=== PATIENT | male | born 1980 | race Caucasian/White ===

== ENCOUNTER 2017-08-13 11:05 | Observation (INO) | payer OTHER ==
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
[2017-08-13 12:55] LABS: INR 0.93 (0.83-1.16); PROTIME(PATIENT) 12.4 SEC (12.0-15.0)
[2017-08-13] MEDS ORDERED: HYDROCODONE/APAP 5/325 TAB PO PRN (12:56)
[2017-08-13] MEDS ORDERED: ONDANSETRON 4 MG/2 ML VIAL IVP PRN (12:56)
[2017-08-13] MEDS ORDERED: ACETAMINOPHEN 325 MG TAB PO PRN (12:56)
[2017-08-13] MEDS ORDERED: NALOXONE HCL 0.4 MG/ML INJ IVP PRN (12:56)
[2017-08-13] MEDS ORDERED: NS 1,000 ML IV SCH (13:00)
[2017-08-13 13:24] LABS: PLATELET COUNT 216 10^3/uL (150-400)
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
[2017-08-13] MEDS: levETIRAcetam 500 MG TAB PO SCH ×2 (14:20→21:18)
[2017-08-13] MEDS: HYDROmorphone HCL/NS/PF 0.4 MG/2 ML SYR IVP PRN ×3 (14:51→19:23)
[2017-08-13] MEDS ORDERED: ZOLPIDEM TARTRATE 5 MG TAB PO ONE (17:35)
[2017-08-13] MEDS: DIAZEPAM 5 MG TAB PO PRN (21:11)
[2017-08-13] MEDS: oxyCODONE IR 5 MG TAB PO PRN (21:11)
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
[2017-08-14] MEDS: oxyCODONE IR 5 MG TAB PO PRN ×3 (01:59→11:47)
[2017-08-14 04:20] VITALS: TEMP 97.9
[2017-08-14] MEDS: DIAZEPAM 5 MG TAB PO PRN ×2 (04:25→13:08)
--- NOTE | 2017-08-14 06:49 | SOAPPROG ---
CAROL Progress Note Assessment/Plan: Assessment: L scapula fracture to be treated nonop cervical strain finger strain, no fracture Plan:F/U with Dr. Allen in 2 weeks for xrays of scapula If neck pain is worsening consider soft collar Ok to Discharge from ortho standpoint 08/14/17 06:46 Subjective: Pain from neck to interscapular area No loss of feeling Objective: Vital Signs Temp Pulse Resp BP Pulse Ox 36.6 C 59 L 17 105/74 93 08/14/17 04:00 08/14/17 04:00 08/14/17 04:00 08/14/17 04:00 08/14/17 04:00 08/13/17 08/14/17 08/15/17 05:59 05:59 05:59 Intake Total 671 Output Total 500 Balance 171 PT 12.4 SEC (12.0-15.0) 08/13/17 12:25 INR 0.93 (0.83-1.16) 08/13/17 12:25 CSMT OK Tender on left paracervical area that extends into interscapular area strength 5/5 all muscle groups Sensation intact ICD10 Worksheet Patient Problems: Problems Problem Status Onset Alcohol intoxication Acute Subdural hematoma Acute Trapezius strain Acute
[2017-08-14 07:44] VITALS: BP 117/80; PULSE 76; RESP 24
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
[2017-08-14] MEDS: levETIRAcetam 500 MG TAB PO SCH (09:07)
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
[2017-08-14 10:38] VITALS: O2SAT 98
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
== END 2017-08-14 14:30 | disposition home or self-care (01) ==
LOC: EDUNIT# → F2N 13:23
PROVIDERS: ADMIT Surgery; ATTEND Surgery
DX: S06.5X0A Traumatic subdural hemorrhage without loss of consciousness, initial encounter (principal); S42.115A Nondisplaced fracture of body of scapula, left shoulder, initial encounter for closed fracture; S13.4XXA Sprain of ligaments of cervical spine, initial encounter; S63.615A Unspecified sprain of left ring finger, initial encounter; V48.0XXA Car driver injured in noncollision transport accident in nontraffic accident, initial encounter; Y92.414 Local residential or business street as the place of occurrence of the external cause; M25.552 Pain in left hip
CPT/HCPCS: 70450; 72125; 72141; 73030; 73140; 92523; 97165; G0378; G0480; J1170